=== PATIENT | male | born 1950 | race Caucasian/White ===

== ENCOUNTER → 2019-07-02 | Outpatient (CLI) | payer MEDICARE, BC ==
[~2019-07-02] MED LIST: ATOR20TA PO; CARV12.545 PO; FURO40TA5 PO; ISOS30TA6 PO; LEVO112T7 PO; LOSA100T32 PO; LOSA25TA26 PO; POTA10TA15 PO; POTA99TA15 PO; RIVA20TA PO; SOTA80TA PO; SPIR25TA6 PO
[2019-07-02 16:52] LABS: BASOPHILS % 0.5 % (0.0-2.0); HEMATOCRIT. 43.3 % (42.0-52.0); HEMOGLOBIN. 14.9 g/dL (14.0-18.0); LYMPHOCYTES % 27.8 % (20.0-50.0); MEAN CORPUSCULAR HEMOGLOBIN 33.5 pg (28.0-32.0); MEAN CORPUSCULAR VOLUME 97.4 fL (80.0-94.0); MEAN PLATELET VOLUME 7.1 fl (7.4-10.4); MONOCYTES % 9.2 % (2.0-8.0); NEUTROPHILS % 61.5 % (40.0-76.0); PLATELET 210 x1000/uL (130-400); RED BLOOD CELL COUNT 4.44 mill/uL (4.7-6.1); RED CELL DISTRIBUTION WIDTH 13.2 % (11.6-14.6)
[2019-07-02 16:58] LABS: INR 1.4; PARTIAL THROMBOPLASTIN TIME 36.9 sec (23.4-31.0); PROTHROMBIN TIME 14.5 sec (9.6-11.0)
== END | disposition home or self-care (01) ==
LOC: LAB 16:24
PROVIDERS: ATTEND Internal Medicine Clinical Cardiac Electrophysiology
DX: I42.0 Dilated cardiomyopathy (principal); I50.23 Acute on chronic systolic (congestive) heart failure
CPT/HCPCS: 36415; 80048; 85025

== ENCOUNTER 2019-07-05 07:08 | Day surgery (SDC) | payer MEDICARE, BC ==
[~2019-07-05] VITALS: Ht 182.9 cm; Wt 108.9 kg
[~2019-07-05 07:08] MED LIST changes: -ATOR20TA PO; -LEVO112T7 PO; -LOSA25TA26 PO; -POTA99TA15 PO; -SOTA80TA PO
[2019-07-05] MEDS ORDERED: ATOR20TA PO (08:16)
[2019-07-05] MEDS ORDERED: LEVO112T7 PO (08:16)
[2019-07-05] MEDS ORDERED: FURO40TA5 PO (08:16)
[2019-07-05] MEDS ORDERED: CARV12.545 PO (08:16)
[2019-07-05] MEDS ORDERED: RIVA20TA PO (08:16)
[2019-07-05] MEDS ORDERED: POTA99TA15 PO (08:16)
[2019-07-05] MEDS ORDERED: SPIR25TA6 PO (08:16)
[2019-07-05] MEDS ORDERED: LOSA25TA26 PO (08:16)
[2019-07-05] MEDS ORDERED: SOTA80TA PO (08:16)
== END 2019-07-05 11:14 | disposition home or self-care (01) ==
LOC: CARD 07:08
PROVIDERS: ATTEND Internal Medicine Clinical Cardiac Electrophysiology
DX: I48.19 Other persistent atrial fibrillation (principal); I50.22 Chronic systolic (congestive) heart failure; E78.5 Hyperlipidemia, unspecified; E66.9 Obesity, unspecified; Z79.899 Other long term (current) drug therapy; Z72.89 Other problems related to lifestyle; Z82.49 Family history of ischemic heart disease and other diseases of the circulatory system
CPT/HCPCS: 92960; 93005